=== PATIENT | female | born 1940 | race Caucasian/White ===

== ENCOUNTER 2016-11-26 07:55 | Emergency (ER) | payer MEDICARE, BC ==
[~2016-11-26 07:55] MED LIST: ACET500CAP PO; ADVIL PO; ASAB PO; BEN25 PO; BENEFIBE6 PO; BIAXIN5 PO; BREO ELLIPTA INH; BRILINTA90 MG PO; Benefiber PO; CENTRUM PO; CLARIT10 PO; COREG3 PO; DEX4 PO; DSS PO; FLONASE NAS; FLORASTOR250 MG PO; FORTEO SC; IRON OTC PO; LAM250 PO; LAMIS15 TOP; LEVAQ250 PO; LEVAQUIN5T PO; LEVAQUIN750 MG PO; LEXAPRO5 MG PO; LIPITOR20 PO; LIQUID TEARS OPH; LOP25 PO; LORTAB10 PO; MULTIPLE VIT PO; MULTIVIT/MIN PO; NATURL FIBER68 % PO; NEXIUM20 M1 PO; NEXIUM40 PO; OCEAN NAS; OTC FIBER; P5 PO; PREDNISOL5 PO; PRILO PO; PRIN2.5 PO; REFRESH OPH; RIFADIN 300 MG300 MG PO; SPIRIVA INH; TEARS NATURA OPH; ULTRAM50 PO; VITAMIN B-12 OTC PO; WOMENS VITAMIN; ZITH250 PO; ZOFRAN8 PO; [UNRECOGNIZED DRUG - OTHER] OR
[2016-11-26 09:28] LABS: BASOPHILS 0.3 %; BASOPHILS ABSOLUTE 0.02 10/3/uL (0.0-0.16); EOSINOPHILS 1.2 %; EOSINOPHILS ABSOLUTE 0.08 10/3/uL (0.0-0.53); ER CBC TAT 0 Hrs 05 Mins; HEMATOCRIT 35.5 % (36.0-48.0); IMMATURE GRANULOCYTES 0.2 %; IMMATURE GRANULOCYTES ABSOLUTE 0.01 10/3/uL (0.0-0.11); LYMPHOCYTES 15.2 %; LYMPHOCYTES ABSOLUTE 0.98 10/3/uL (0.67-4.30); MEAN CORPUS HGB CONC 33.8 g/dL (32.0-36.0); MEAN CORPUSCULAR HEMOGLOB 31.9 pg (26.0-34.0); MEAN CORPUSCULAR VOLUME 94.4 fL (80-100); MEAN PLATELET VOLUME 9.8 fL (9.2-13.0); MONOCYTES 9.4 %; MONOCYTES ABSOLUTE 0.61 10/3/uL (0.21-1.20); NEUTROPHILS 73.7 %; NEUTROPHILS ABSOLUTE 4.76 10/3/uL (2.02-8.40); PLATELET COUNT 130 10/3/uL (150-400); RBC DISTRIBUTION WIDTH 13.7 % (12.0-16.0); RED CELL COUNT 3.76 10/6/uL (4.0-5.6); WHITE BLOOD CELLS 6.5 10/3/uL (4.5-10.5)
[2016-11-26 09:29] LABS: MANUAL DIFF NO %
[2016-11-26 09:37] LABS: INTERNATIONAL NORMAL RATI 1.2 UNITS (-); PARTIAL THROMBO TIME 28.2 SEC (22.5-37.2); PROTIME (NOT ORD) 15.3 SEC (12.0-14.5)
[2016-11-26 09:45] LABS: ALBUMIN 3.5 G/DL (3.5-5.0); ALKALINE PHOSPHATASE 97 U/L (45-117); BUN (BLOOD UREA NITROGEN) 20 MG/DL (6-23); CHEST PAIN PROFILE TAT 0 Hrs 22 Mins; CHLORIDE, SERUM 98 MMOL/L (96-112); CO2 (CARBON DIOXIDE) 33 MMOL/L (24-34); CREATININE 0.66 MG/DL (0.55-1.02); DIRECT BILIRUBIN 0.2 MG/DL (0.0-0.4); GFR AFRICAN AMERICAN 98 ML/MIN (>=60); GFR NON AFRICAN AMERICAN 85 ML/MIN (>=60); GLUCOSE, SERUM 82 MG/DL (60-99); SGOT(AST) 52 U/L (5-40); SGPT(ALT) 52 U/L (5-65); SODIUM, SERUM 135 MMOL/L (135-148); TOTAL PROTEIN 7.3 G/DL (6.0-8.5); TROPONIN I <0.02 NG/ML (<0.05)
[2016-11-26 09:46] LABS: POTASSIUM, SERUM 3.8 MMOL/L (3.5-5.3); TOTAL BILIRUBIN 1.2 MG/DL (0-1.2)
[2016-11-26 12:25] LABS: ASCORBIC ACID (UR NOT ORDER) NEGATIVE (NEG); BILIRUBIN, URINE NEGATIVE (NEG); ER URINALYSIS TAT 0 Hrs 54 Mins; KETONE, URINE NEGATIVE (NEG); LEUKOCYTE ESTERASE(NOT OR NEG (NEG); NITRITE (URINE) NEG (NEG); WBC (NOT ORDERED) (RFLEX) 2 (0-5)
[2016-11-26] MEDS ORDERED: ZITH250 PO (13:21)
[2016-11-26] MEDS ORDERED: COREG3 PO (13:21)
[2016-11-26] MEDS ORDERED: BREO ELLIPTA INH (13:22)
[2016-11-26] MEDS ORDERED: LIPITOR20 PO (13:22)
[2016-11-26] MEDS ORDERED: BRILINTA90 MG PO (13:23)
[2016-11-26] MEDS ORDERED: FORTEO SC (13:24)
[2016-11-26] MEDS ORDERED: SPIRIVA INH (13:24)
[2016-11-26] MEDS ORDERED: P5 PO (13:24)
[2016-11-26] MEDS ORDERED: LIQUID TEARS OPH (13:25)
[2016-11-26] MEDS ORDERED: OCEAN NAS (13:26)
[2016-11-26] MEDS ORDERED: ASAB PO (13:29)
[2016-11-26] MEDS ORDERED: ALLEGRA180 PO (13:29)
[2016-11-26] MEDS ORDERED: MULTIVITAMI1 PO (13:30)
[2016-11-26] MEDS ORDERED: BENEFIBER PO (13:30)
[2016-11-26] MEDS ORDERED: ACET500CAP PO (13:30)
[2016-11-26] MEDS ORDERED: VITAMIN B12 GUMMIES PO (13:33)
== END 2016-11-26 13:50 | disposition home or self-care (01) ==
LOC: ER 07:55
PROVIDERS: Emergency Medicine
DX: R04.2 Hemoptysis (principal); R10.9 Unspecified abdominal pain; I25.10 Atherosclerotic heart disease of native coronary artery without angina pectoris; Z87.891 Personal history of nicotine dependence; Z95.5 Presence of coronary angioplasty implant and graft
CPT/HCPCS: 71020; 71275; 74177; 80048; 80076; 81001; 83690; 83735; 84484; 85025; 85610; 85730; 99284; Q9967